=== PATIENT | male | born 1955 | race Caucasian/White ===

== ENCOUNTER 2024-12-27 01:06 | Day surgery (SDC) | payer OTHER, SELFPAY ==
[2024-12-19 12:23] VITALS: BMI 33.9
--- OUTSIDE RECORDS SUMMARY | 2024-12-27 01:09 | XMS_ITS | Continuity of Care Document ---
Author Organization [facility] Address [address] [place] [address] Phone Care Team Providers Care Cleaners Name Role Phone Bonny Chatman MD Unavailable Unavailable Allergies, Adverse Reactions, Alerts Substance Reaction Status Criticality No Known Allergies Active No Inform ation Medications Medication Instructions Dosage Effective Dates (start - stop) Status Comments LISINOPRIL-HCTZ 20-12.5 MG TAB TAKE 1 TABLET BY MOUTH EVERY DAY - Active amlodipine 5 mg tablet TAKE 1.5 TABLETS BY MOUTH EVERY DAY - Active ATORVASTATIN 20 MG TABLET TAKE 1 TABLET BY MOUTH EVERY DAY - Active PANTOPRAZOLE SOD DR 40 MG TAB TAKE 1 TABLET BY MOUTH EVERY DAY - Active Viagra 50 mg tablet take 1 tablet by oral route every day as needed approximately 1 hour before sexual activity 50 MG - Active Needs to use [facility] and it should go to Aspirin Low Dose 81 mg tablet,delayed release take 1 tablet by oral route every day 81 MG - Active LISINOPRIL-HCTZ 20-12.5 MG TAB TAKE 1 TABLET BY MOUTH EVERY DAY - No Longer Active Procedures Procedure Date CBC, INC PLATELETS AND DIFFERENTIAL COMPREHEN METABOLIC PANEL CMP LIPID PANEL PSA, TOTAL Pt inelig neg scrn depres FALL RISK ASSESSMENT DOC'D MED LIST DOCD IN RCRD PREVENTATIVE-EST: 65 & OVER BODY MASS INDEX DOCD SYST BP GE 130 - 139MM HG DIAST BP < 80 MM HG ROUTINE VENIPUNCTURE IL BASIC METABOLIC PANEL(BMP) Pt inelig neg scrn depres IMMUN ADMIN (INC PERCUTANEOUS) SINGLE, F IRST INJ RIV3 VACCINE NO PRESERV IM OFFICE [id number] BODY MASS INDEX DOCD SYST BP LT 130 MM HG DIAST BP 80-89 MM HG ROUTINE VENIPUNCTURE IL CBC, INC PLATELETS AND DIFFERENTIAL COMPREHEN METABOLIC PANEL CMP LIPID PANEL PSA, TOTAL FALL RISK ASSESSMENT DOC'D PRES/ABSN URINE INCON ASSESS Pt inelig neg scrn depres IMMUN ADMIN (INC PERCUTANEOUS) SINGLE, F IRST INJ TDAP INTRAMUSCULAR USE PREVENTATIVE-EST: 65 & OVER BODY MASS INDEX DOCD SYST BP GE 130 - 139MM HG DIAST BP < 80 MM HG ROUTINE VENIPUNCTURE IL BASIC METABOLIC PANEL(BMP) Pt inelig neg scrn depres IMMUN ADMIN (INC PERCUTANEOUS) SINGLE, F IRST INJ Flu Vac, quad (RIV4), Preservative And A ntibiotic Free IM OFFICE [id number] BODY MASS INDEX DOCD SYST BP GE 130 - 139MM HG DIAST BP < 80 MM HG ROUTINE VENIPUNCTURE IL OFFICE [id number] BODY MASS INDEX DOCD SYST BP LT 130 MM HG DIAST BP < 80 MM HG CBC, INC PLATELETS AND DIFFERENTIAL COMPREHEN METABOLIC PANEL CMP LIPID PANEL PSA, TOTAL Pt inelig neg scrn depres FALL RISK ASSESSMENT DOC'D PRES/ABSN URINE INCON ASSESS PREVENTATIVE-EST: 65 & OVER BODY MASS INDEX DOCD SYST BP >= 140 MM HG6 IT DIAST BP < 80 MM HG IMMUN ADMIN (INC PERCUTANEOUS) SINGLE, F IRST INJ Pneumococcal Conjugate Vaccine (PCV20) F ROUTINE VENIPUNCTURE [place] Pt inelig neg scrn depres OFFICE [id number] BODY MASS INDEX DOCD SYST BP GE 130 - 139MM HG DIAST BP < 80 MM HG BASIC METABOLIC PANEL(BMP) ROUTINE VENIPUNCTURE OFFICE [id number] BODY MASS INDEX DOCD SYST BP GE 130 - 139MM HG DIAST BP < 80 MM HG Pt inelig neg scrn depres IMMUN ADMIN (INC PERCUTANEOUS) SINGLE, F IRST INJ PNEUMOVAX IMMUNIZATION FALL RISK ASSESSMENT DOC'D PRES/ABSN URINE INCON ASSESS PREVENTATIVE-EST: 65 & OVER BODY MASS INDEX DOCD SYST BP >= 140 MM HG6 IT DIAST BP < 80 MM HG CBC, INC PLATELETS AND DIFFERENTIAL COMPREHEN METABOLIC PANEL CMP 2 LIPID PANEL PSA, TOTAL ROUTINE VENIPUNCTURE Pt inelig neg scrn depres PREVENTATIVE-EST: 40-64 BODY MASS INDEX DOCD SYST BP >= 140 MM HG6 IT DIAST BP < 80 MM HG CBC, INC PLATELETS AND DIFFERENTIAL COMPREHEN METABOLIC PANEL CMP 1 LIPID PANEL PSA, TOTAL ROUTINE VENIPUNCTURE Pt inelig neg scrn depres DESTRUCT BENIGN LESIONS OTHE R THAN SKIN TAGS OR CUTANEOUS VASCULAR LESIONS UP TO PREVENTATIVE-EST: 40-64 BODY MASS INDEX DOCD SYST BP LT 130 MM HG DIAST BP < 80 MM HG IMMUN ADMIN (INC PERCUTANEOUS) SINGLE, F IRST INJ Zoster Vaccine (HZV) (SHINGRIX), Intramu scular Advance Directives Directive Yes / No Effective Date File Name No Information Encounters Encounter Description Practice Location Reason(s) For Visit Diagnoses Date Provider Providers Copied on Encounter [facility], [address], [place], [place], [address] , [place] tel:[phone] [facility] No Information 5 Compa Draper. [address], [place], [address] , [place]. tel:[phone] [facility], [address], [place], [place], [address] , [place] tel:[phone] [facility] No Information 5 Compa Draper. [address], [place], [address] , [place]. tel:[phone] [facility], [address], [place], [place], [address] , [place] tel:[phone] [facility] No Information 5 Anna Butler. [address] [facility], [address] [address], [place], [place], [address] , [place]. tel: [phone] Referring Provider: Bonny Rios, [address] [place], [address] . tel:[phone] PREVENTATIVE -EST: 65 & OVER , [address], [place], [place], [address] , [place] tel: [phone] [facility] preventive exam (chief complaint)C hronic Conditions (chief complaint) Pain, joint, shoulder, leftEssential (primary) hypertensionRoutin e medical examHyperlipidemia , unspecified hyperlipidemia typeGastro-esophag eal reflux disease without esophagitis 5 Compa Draper. [address], [place], [address] , [place]. tel: [phone] Referring Provider: Bonny Rios, [address] [place], [address] . tel:[phone] [facility], [address], [place], [place], [address] , [place] tel: [phone] [facility] No Information 5 Compa Draper. [address], [place], [address] , [place]. tel: [phone] [facility] [place], [address], [place], [place], [address] , [place] tel: [phone] [facility] No Information 5 Compa Draper. [address], [address] , [place]. tel: [phone] [facility], [address], [place], [place], [address] , [place] tel: [phone] [facility] No Information 4 Compa Draper. [address], [place], [address] , [place]. tel: [phone] [facility], [address], [place], [place], [address] , [place] tel: [phone] [facility] No Information 4 Anna Rodriguezn. [address], [address] , [place]. tel: [phone] Referring Provider: Bonny Rios, [address] [place], [address] . tel:[phone] OFFICE [facility] , [address], [place], [place], [address] , [place] tel: [phone] [facility] Chronic Conditions (chief complaint) Body mass index [BMI] 35.0-35.9, adultEssential (primary) hypertensionHyperl ipidemia, unspecified hyperlipidemia typeGastro-esophag eal reflux disease without esophagitisRoutine medical exam Sep- 4 Compa Draper. [address], [place], [address] , . tel: [phone] Referring Provider: Bonny Rios, [address] [place], [address] . tel:[phone] [employer] [facility], [address], [place], [place], [address] , [place] tel: [phone] [facility] No Information Mar- 4 English Elizabeth. [address], [place], [address] , [place]. tel: [phone] [facility], [address], [place], [place], [address] , [place] tel: [phone] [facility] No Information 4 Anna Rodriguezn. [address] [facility], [address], [address] , [place]. tel: [phone] Referring Provider: Kat Watts, [address] [place], [address] . tel:[phone] PREVENTATIVE -EST: 65 & OVER , [address], [place], [place], [address] , [place] tel: [phone] [facility] Chronic Conditions (chief complaint)p reventive exam (chief complaint)c hronic conditions (chief complaint) Hyperlipidemia, unspecified hyperlipidemia typeObstructive sleep apneaEssential (primary) hypertensionGastro -esophageal reflux disease without esophagitisRoutine medical examBody mass index [BMI] 35.0-35.9, adultProstate cancer screening 4 Mac Stephens. [address] [place], [place], [address] , [place]. tel: [phone] Referring Provider: Bonny Rios, [address] [place], [address] . tel:[phone] [facility], [address], [place], [place], [address] , tel: [phone] [facility] No Information 3 Compa Draper. [address], [place], [address] , [place]. tel: [phone] [facility], [address], [place], [place], [address] , tel: [phone] [facility] No Information 3 Anna Rodriguezn. [address], [address] , . tel: [phone] Referring Provider: Bonny Rios, [address] [place], [address] . tel:[phone] OFFICE MRGDP-ARY-EZ [facility] , [address], [place], [place], [address] , tel: [phone] [facility] chronic conditions (chief complaint) Body mass index [BMI] 34.0-34.9, adultObstructive sleep apneaEssential (primary) hypertensionHyperl ipidemia, unspecified hyperlipidemia type 3 Compa Draper. [address], [place], [address] , [place]. tel: [phone] Referring Provider: Bonny Rios, [address] [place], [address] . tel:[phone] OFFICE [id number]-MFQ-JB PANDED [facility] [place], [address], [place], [place], [address] , tel: [phone] [facility] CPAP compliance (chief complaint) Essential (primary) hypertensionObstru ctive sleep apneaTrigger middle finger of right hand 3 Compa Draper. [address], [place], [address] , [place]. tel: [phone] Referring Provider: Bonny Rios, [address] [place], [address] . tel:[phone] [facility], [address], [place], [place], [address] , tel: [phone] [facility] Snoring Sep- 3 Compa Draper. [address], [address] , [place]. tel: [phone] [facility], [address], [place], [place], [address] , tel: [phone] [facility] No Information 3 Anna Butler. [address], [address] , . tel: [phone] Referring Provider: Kat Watts, [address] [place], [address] . tel:[phone] PREVENTATIVE -EST: 65 & OVER [facility] [place], [address], [place], [place], [address] , tel: [phone] [facility] preventive exam (chief complaint) Essential (primary) hypertensionGastro -esophageal reflux disease without esophagitisHyperli pidemia, unspecified hyperlipidemia typeRoutine medical examSnoringMuscle cramping 3 Mac Stephens. [address] [place], [place], [address] , . tel: [phone] Referring Provider: Bonny Rios, [address] [place], [address] . tel:[phone] [facility], [address], [place], [place], [address] , tel: [phone] [facility] No Information 3 Compa Draper. [address], [place], [address] , . tel: [phone] [employer] [facility], [address], [place], [place], [address] , [place] tel: [phone] [facility] No Information 2 oCmpa Draper. [address], [place], [address] , [place]. tel: [phone] OFFICE YVMAD-OKZ-PK TAILED [facility], [address], [place], [place], [address] , tel: [phone] [place] Chro[facility] conditions (chief complaint)C hronic Conditions (chief complaint) Body mass index [BMI] 33.0-33.9, adultEssential (primary) hypertensionGastro -esophageal reflux disease without esophagitisHyperli pidemia, unspecified hyperlipidemia type 2 Compa Draper. [address], [place], [address] , . tel: [phone] Referring Provider: Bonny Rios, [address] [place], [address] . tel:[phone] [facility], [address], [place], [place], [address] , tel: [phone] [facility] No Information 2 Compa Draper. [address], [place], [address] , [place]. tel: [phone] OFFICE SMLDZ-SBP-DG [facility], [address], [place], [place], [address] , [place] tel: [phone] Christine F/u HTN (chief complaint) Essential (primary) hypertensionBody mass index [BMI] 33.0-33.9, adult Aug- 2 Mac Stephens. [address] [place], [place], [address] , [place]. [phone] Referring Provider: Glenn Quintanilla, [address] [place], [address] . tel:[phone] PREVENTATIVE -EST: 65 & OVER [facility], [address], [place], [place], [address] , tel: [phone] [place] preventive exam (chief complaint) Body mass index [BMI] 33.0-33.9, adultEssential (primary) hypertensionGastro -esophageal reflux disease without esophagitisRoutine medical exam 2 Compa Draper. [address], [place], [address] , . [phone] Referring Provider: Bonny Rios, [address] [place], [address] . tel:[phone] [facility], [address], [place], [place], [address] , tel: [phone] [place] Essential hypertensionHyperl ipidemia, unspecified hyperlipidemia typeScreening for prostate cancerBlood tests for routine general physical examination 2 Compa Draper. [address], [place], [address] , . [phone] Referring Provider: Bonny Rios, [address] [place], [address] . tel:[phone] [facility], [address], [place], [place], [address] , tel: [phone] [place] No Information 1 Compa Draper. [address], [place], [address] , . tel:[phone] PREVENTATIVE -EST: 40-64 [facility], [address], [place], [place], [address] , [place] tel: [phone] Christine Physical (chief complaint)p reventive exam (chief complaint) Body mass index (BMI) 31.0-31.9, adultEssential (primary) hypertensionGastro -esophageal reflux disease without esophagitisEncount er for general adult medical examination without abnormal findingsLeft hip pain 1 Compa Draper. [address], [address] , [place]. tel: [phone] Referring Provider: Bonny Rios, [address] [place], [address] . tel:[phone] [employer] [facility], [address], [place], [place], [address] , [place] tel: [phone] [place] Essential hypertensionHyperl ipidemia, unspecified hyperlipidemia typeScreening for prostate cancerEncounter for blood test for routine general physical examination 1 Compa Draper. [address], [place], [address] , [place]. tel: [phone] Referring Provider: Bonny Rios, [address] [place], [address] . tel:[phone] PREVENTATIVE -EST: 40-64 [facility], [address], [place], [place], [address] , tel: [phone] [facility] preventive exam (chief complaint)1 2 month (chief complaint)C hronic Conditions (chief complaint) Encounter for general adult medical examination without abnormal findingsBody mass index (BMI) 32.0-32.9, adultEssential (primary) hypertensionGastro -esophageal reflux disease without esophagitisViral wart on fingerRosacea 0 Bryan Carter. [address] [facility], [address], [place], [place], [address] , [place]. tel: [phone] Referring Provider: Raul Adams, [address] [facility] [address], [place], [address] . tel:[phone] [facility], [address], [place], [place], [address] , [place] tel: [phone] [facility] Hyperlipidemia, unspecifiedEssenti al (primary) hypertensionPain in both lower extremitiesMale erectile dysfunction, unspecified 0 9 Bryan Carter. [address], [address], [place], [place], [address] , [place]. tel: [phone] Referring Provider: Raul Adams, [address], [place], [address] . tel:[phone] [facility], [address], [place], [place], [address] , tel: [phone] [facility] No Information 8 Dale Burks. [address], [address], [place], [place], [address] . tel: [phone] [facility], [address], [place], [place], [address] , tel: [phone] [facility] Hyperlipidemia, unspecifiedEssenti al (primary) hypertensionEncoun ter for general adult medical examination with abnormal findingsMale erectile dysfunction, unspecified 8 Bryan Carter. [address], [address], [place], [place], [address] , [place]. tel: [phone] Referring Provider: Raul Adams, [address], [place], [address] . tel:[phone] [facility], [address], [place], [place], [address] , tel: [phone] [facility] Family history of prostate cancerEssential hypertensionGastro esophageal reflux disease without esophagitisEncount er for general adult medical examination without abnormal findings 7 Bryan Carter. [address], [address], [place], [place], [address] , [place]. tel: [phone] Referring Provider: Raul Adams, [address], [place], [address] . tel:[phone] [facility], [address], [place], [place], [address] , tel: [phone] [facility] No Information 6 Bryan Carter. [address], [address], [place], [place], [address] , [place]. tel: [phone] [facility], [address], [place], [place], [address] , [place] tel: [phone] [facility] GERD without esophagitis Jun-0 7-201 5 Bryan Raul. [address], [address], [place], [place], [address] , [place]. tel: [phone] [facility], [address], [place], [place], [address] , [place] tel: [phone] [facility] Chest pain in adultRight upper quadrant painGERD without esophagitisEssenti al hypertension Jun-0 4-201 5 Bryan Raul. [address] [facility] [address], [address], [place], [place], [address] , [place]. tel: [phone] Referring Provider: Jose Luis Hannah, [address] [facility] [address], [place], [address] . tel:[phone] [facility], [address], [place], [place], [address] , [place] tel: [phone] [facility] Liver lesionABDMNAL PAIN GENERALIZED May-2 6 4 Trame Jose Luis. [address], [address], [place], [place], [address] . tel: [phone] [facility], [address], [place], [place], [address] , [place] tel: [phone] [facility] Liver lesion May-2 4 Trame Jose Luis. [address], [address], [place], [place], [address] . tel: [phone] Referring Provider: Jose Luis Hannah, [address] [facility] [address], [place], [address] . tel:[phone] [facility], [address], [place], [place], [address] , [place] tel: [phone] [facility] Influenza VaccineEssential hypertension Sep-2 9 4 Tramamelia Amaya. [address] [facility] [address], [address], [place], [place], [address] . tel: [phone] Referring Provider: Jose Luis Hannah, [address] [facility] [address], [place], [address] . tel:[phone] [facility], [address], [place], [place], [address] , tel: [phone] [facility] ROUTINE MEDICAL EXAMBENIGN HYPERTENSIONHistor y of colon polypsFamily history of prostate cancerHistory of melanomaRoutine Medical ExamNEED FOR PROPHYLACTIC VACCINATION WITH COMBINED DIPHTHERIA-TETANUS -PERTUSSIS (DTP) (DTAP) VACCINE 4 Blakesleeamelia Amaya. [address] [facility], [address], [place], [place], [address] . tel: [phone] Referring Provider: Jose Luis Hannah, [address] [facility] [address], [place], [address] . tel:[phone] [facility] [address], [place], [place], [address] , [place] tel: [phone] [facility] No Information 3 Blakesleeamelia Amaya. [address] [facility], [address], [place], [place], [address] . tel: [phone] [facility] [address], [place], [place], [address] , [place] tel: [phone] [facility] JOINT PAIN-SHLDERROUTINE MEDICAL EXAM 1 Blakesleeamelia Amaya. [address] [facility], [address], [place], [place], [address] . tel: [phone] [facility] [address], [place], [place], [address] , [place] tel: [phone] [facility] HYPERLIPIDEMIA NEC/NOSBENIGN HYPERTENSIONPEYRON IE'S DISEASE Dec- 3-200 9 Brielle Amaya. [address] [facility], [address], [place], [place], [address] . tel: [phone] [facility], [address], [place], [place], [address] , tel: [phone] [facility] POLYURIAFAMILY HX-GI MALIGNANCY 8 Trame Keeseville. [address], [address], [place], [place], [address] . tel: [phone] [facility], [address], [place], [place], [address] , tel: [phone] [facility] SCRN MALIG NEOP-PROSTATEURINA RY FREQUENCY 7 Trame Jose Luis. [address] [facility] [address], [address], [place], [place], [address] . tel: [phone] [facility], [address], [place], [place], [address] , tel: [phone] [facility] ABDMNAL PAIN GENERALIZED 4 Trame Jose Luis. [address] [facility], [address], [place], [place], [address] . tel: [phone] [facility], [address], [place], [place], [address] , tel: [phone] [facility] VACCINATION FOR TD-DT 4 Trame Jose Luis. [address], [address], [place], [place], [address] . tel: [phone] Family History Family Member Type Diagnosis Age At Onset Mother Problem (finding) stroke Father Problem (finding) stroke Father Problem (finding) osteoarthritis Father Problem (finding) pulmonary emphysema Sister Problem (finding) Parkinson's disease Problem (finding) Family history of hyper tension Mother Problem (finding) Cancer - bowel Immunizations Vaccine Date Status Comments Flublok, Trivalent, preservative free, 18+ yrs, 0.5mL dosage administered Source: New Immuniza tion Record COVID-19, mRNA, LNP-S, PF, 5 0 mcg/0.5 mL administered Source: Other Provid er Moderna Spikevax COVID Vacci ne, mRNALNP, 50 mcg/0.5 mL dose, 12 yrs and older administered Note: [facility] ; Source: Source Unspecified Tdap administered Source: New Imm unization Record RSV, recombinant, protein subunit RSVpreF, adjuvant reconstituted, 0.5 mL, PF administered Note: [facility] ; So urce: Other Provider Flublok, quadrivalent, preservative free, 0.5mL dosage administered Source: New Immunization Record Pneumococcal conjugate PCV20 administered Source: New Immunization Record influenza, high-dose, quadrivalent administered Source: Other Provid er Pfizer (Diluent Reconstitute d) COVID19 Vaccine, 0.3mL per dose, 2 doses, administered 21 days apart administered Note: [facility] ; Source: Source Unspecified Pneumococcal polysaccharide PPV23 administered Source: New Immuniza tion Record Fluzone Quad, preservative free, split virus, 0.5mL dosage administered Note: [facility] ; Source: Public Agency Pfizer (Diluent Reconstitute d) COVID19 Vaccine, 0.3mL per dose, 2 doses, administered 21 days apart administered Note: [facility] ; So urce: Other Registry Pfizer (Diluent Reconstitute d) COVID19 Vaccine, 0.3mL per dose, 2 doses, administered 21 days apart administered Note: [facility] ; So urce: Other Registry Pfizer (Diluent Reconstitute d) COVID19 Vaccine, 0.3mL per dose, 2 doses, administered 21 days apart administered Note: [facility] ; So urce: Other Registry Fluzone Quad, preservative free, split virus, 0.5mL dosage administered Note: [place] date not accurate ; Source: Source Unspecified SHINGRIX (Zoster vaccine recombinant, adjuvanted) administered Source: Source Unspecified SHINGRIX (Zoster vaccine recombinant, adjuvanted) administered Source: New Imm unization Record Fluzone Quad, split virus, 0.5mL dosage administered [facility] ; Minda rce: Other Provider Zoster administered Source: Source Unspecified influenza, injectable, quadrivalent, (3 years or older) administered [facility] ; So urce: Other Registry influenza, injectable, quadrivalent, (3 years or older) administered Note: [facility] ; So urce: Other Provider Influenza, injectable, quadrivalent, preservative free, 3 yrs or older administered Source: New Immuniz ation Record Tdap (Boostrix r) administered Source: Ne w Immunization Record flu (split) (3 yrs or older) administered Source: Other Provider [id number] - TD administered Source: Source Unspecified Payers Payer name Insurance type Covered libertarian ID Authoriza tion(s) AETNA NAP CI [id number] AETNA NAP CI [id number] AET[employer] NAP CI [id number] AETNA NAP CI [id number] AET[employer] NAP CI [id number] AETNA NAP CI [id number] AETNA NAP CI [id number] [facility] CI [id number] Social History Type Description Quantity Date Captured Comments Sex Male Smoking Status No Information Chief Complaint And Reason For Visit No Information Reason For Referral Reason For Referral No Information Plan Of Treatment Date Type Action Status Goal Dietary manageme nt education, guidance, and counseling completed Goal Dietary manageme nt education, guidance, and counseling completed Goal Dietary manageme nt education, guidance, and counseling completed Goal Dietary manageme nt education, guidance, and counseling completed Goal Dietary manageme nt education, guidance, and counseling completed Goal Dietary manageme nt education, guidance, and counseling completed Goal Dietary manageme nt education, guidance, and counseling completed Goal Dietary manageme nt education, guidance, and counseling completed Referral Ordered: Feliberto Cormier -Gastroenterology (related to Screen for colon cancer) ordered Referral Referred To: Feliberto Cormier Ordered: Referrals: Gastroenterology. Feliberto Cormier. Evaluation/diagnostic/treatment - Level 3 ordered Referral Ordered: CPAP MACHINE (related to Snoring) ordered Referral Referred To: CPAP MACHINE Ordered: Referrals: CPAP MACHINE. Evaluation/diagnostic/treatment - Level 3 ordered Referral Ordered: SLEEP STUDY, UNATTENDED ordered Appointment Dustin Whiting BOOKED History Of Present Illness Encounter Date Complaint History Of Prese nt Illness Chronic Conditions *See Chronic Conditions HPI preventive exam Men's preventive visit. Patient Health Questionnaire (PHQ-2) is negative. Patient is on a healthy diet. Marital status: . Concern(s)/Requests Detail: Routine PE done todayFasting labs drawn today with results pending.Due for colonoscopy due to family history of colon cancer. Relevant history is positive for alcohol use. Relevant history is negative for tobacco use. Chronic Conditions *See Chronic Conditions HPI chronic conditions *See Chronic Conditions HPI Chronic Conditions *See Chronic Conditions HPI preventive exam Men's preventive visit. Patient Health Questionnaire (PHQ-2) is negative. Patient is on a healthy diet. Marital status: . Relevant history is positive for alcohol use. Relevant history is negative for tobacco use. chronic conditions f/u HTN- BP s table on current medication without SE's.No CP or SOB or dizziness.Labs drawn today for close monitoring of renal function.Limiting salt.f/u hyperlipidemia- stable on statin without SE's. tries to limit fatty foods. Plans to start doing more regular exercise.f/u SEMAJ- uses CPAP nightly with good sleep quality. CPAP compliance Pt. here for f/u obstructive sleep apnea.States he has been using his CPAP machine nightly for SEMAJ and has been compliant with the CPAP nightly. States he is tolerating the mask without problems.States his reports that he no longer has apnea episodes and no longer snoring.Feels energy level is stable.Has HTn with BP stable on current meds without SE's.Has trigger finger of middle finger of right hand with locking of the finger at times when trying to extend the finger. preventive exam Men's preventive visit. Patient Health Questionnaire (PHQ-2) is negative. Patient is on a healthy diet. Marital status: . Concern(s)/Requests Detail: Colonoscopy - UTD 2019 - repeat in 2024PSA - DUE NOWCOVID - had COVID recentlyFlu - UTDShingrix - UTDPneumonia - DUE FOR PREVNAR 20HTNTakes amlodipine, lisinopril, HCTZHome BP readings: noneGERDControlled on medications dailyHLDTakes statin with no side effectsPatient reports snoring nightly and having muscle cramps at night. He reports the cramping is not consistent and improves with getting up to walk. Relevant history is positive for alcohol use. Relevant history is negative for tobacco use. Chroinc conditions Chronic Conditions *See Chronic Conditions HPI F/u HTN 66 year old male who presents for followup of HTN. He was started on amlodipine one month ago. He also take losartan/HCTZHome BP readings: 130/70sHe has no side effects on this medications preventive exam Men's preventive visit. Patient Health Questionnaire (PHQ-2) is negative. Marital status: . Concern(s)/Requests Detail: Routine PE done today.Reviewed fasting labs with pt. PSA level pending.Trying to get back to low fat diet and exercise. Has HTN with BP higher on current medication which he attributes to stress and weight gain.Has GERD stable on medication without SE's. Relevant history is positive for alcohol use. Relevant history is negative for tobacco use. Physical preventive exam Men's preventive visit. Patient Health Questionnaire (PHQ-2) is negative. Marital status: . Concern(s)/Requests Detail: Pt. here for routine PE.Reviewed fasting labs with pt. done this week- normal.Pt. has only received one shingles vaccine last year. Has not received the 2nd vaccine yet. Has problems with pain over left hip when laying in bed and improves when getting up and walking around. Pain can occur when laying on right or left side. No pain during the day. Essential (primary) hypertension-uncontrolled with BP higher today. States he has not been checking at home. No SE's on medication.Gastro-esophageal reflux disease without esophagitis-Stablecontrolled with the pantoprazole without SE's. Relevant history is positive for alcohol use. Relevant history is negative for tobacco use. Chronic Conditions *See Chronic Conditions HPI 12 month Has wart on Left index finger which appeared about 2 month ago Increasing in size slowly Notice rosacea on forehead about a month ago . Scaly and somewhat painful Was given some medicated shampoo Been using moisturizer preventive exam Men's preventive visit. Marital status: . Relevant history is positive for alcohol use. Functional Status Date Functional Assessmen t No Information Instructions Date Instruction Additional Infor gato start exercises on t he handoutfollow up if no improvement or any worsening Related to Pain, joint, shoulder, left Refer to Dr. Genia Devlin for colonoscopy due to family history of colonosocpyTry to do some regular exercisefollow up in 6 months Related to Routine medical exam Continue atorvastatin Related to Hyperlipidemia, unspecified hyperlipidemia type continue the pantoprazole. Relat ed to Gastro-esophageal reflux disease without esophagitis Increase amlodipine to 7.5mg dailycontinue lisinopril/hctzCont. regular exercise and cont. to limit salt intake. Monitor home BP's and call if BP consistently running above 140/90.Please send in your blood pressure readings in 3 to 4 weeksfollow up in 6 months- fasting labs prior Related to Essential (primary) hypertension Exercise Flu vaccine given to daytry to do some regular exercise Related to Routine medical exam continue the pantoprazole. Relat ed to Gastro-esophageal reflux disease without esophagitis Continue current med sBMP labs drawn today for close monitoring of electrolytes and kidney functionCont. regular exercise and cont. to limit salt intake. Monitor home BP's and call if BP consistently running above 140/90.follow up in 6 months- fasting labs prior Related to Essential (primary) hypertension Continue atorvastatin Related to Hyperlipidemia, unspecified hyperlipidemia type Immunizations Dietary management e ducation, guidance, and counseling Related to Body mass index (BMI) 35.0-35.9, adult Followup in 6 months We recommend getting the updated COVID booster if you have not yet. You should wait at least 2 months after your last COVID vaccine to get this updated vaccine Related to Routine medical exam continue pantoprazole Related to Gastro-esophageal reflux disease without esophagitis Continue atorvastatin Related to Hyperlipidemia, unspecified hyperlipidemia type Continue current med sCont. regular exercise and cont. to limit salt intake. Monitor home BP's and call if BP consistently running above 140/90. Related to Essential (primary) hypertension Continue wearing you r CPAP nightlycontinue to work on regular exercise and low fat diet Related to Obstructive sleep apnea Urinary Incontinence Dietary management e ducation, guidance, and counseling Related to Body mass index (BMI) 35.0-35.9, adult Fall Risk Prevention Continue atorvastati nCheck labs in 6 months prior to your next appointment Related to Hyperlipidemia, unspecified hyperlipidemia type Continue current med sCont. regular exercise and cont. to limit salt intake. Monitor home BP's and call if BP consistently running above 140/90.Flu vaccine given todayFollow up in 6 months for physical and fasting labs Related to Essential (primary) hypertension Continue wearing you r CPAP nightlycontinue to work on regular exercise and low fat diet Related to Obstructive sleep apnea Exercise Dietary management e ducation, guidance, and counseling Related to Body mass index (BMI) 34.0-34.9, adult Call back if you wou ld like to be referred to a hand specialist for a steroid injection Related to Trigger middle finger of right hand Continue wearing you r CPAP nightlycontinue to work on regular exercise and low fat diet Related to Obstructive sleep apnea Continue current med sCont. regular exercise and cont. to limit salt intake. Monitor home BP's and call if BP consistently running above 140/90. Related to Essential (primary) hypertension continue the pantoprazole. Relat ed to Gastro-esophageal reflux disease without esophagitis Continue atorvastatin Related to Hyperlipidemia, unspecified hyperlipidemia type Followup in 6 months You were updated on Prevnar vaccine todayYou are up to date on other vaccines and screenings Related to Routine medical exam Continue current med sCont. regular exercise and cont. to limit salt intake. Monitor home BP's and call if BP consistently running above 140/90. Related to Essential (primary) hypertension We will check labs t odayDrink more water throughout the dayWe will check sleep study Related to Muscle cramping Fall Risk Prevention Urinary Incontinence We will order a sleep study toda y Related to Snoring Continue atorvastatin Related to Hyperlipidemia, unspecified hyperlipidemia type continue the pantoprazole. Relat ed to Gastro-esophageal reflux disease without esophagitis Continue current med sCont. regular exercise and cont. to limit salt intake. Monitor home BP's and call if BP consistently running above 140/90. Related to Essential (primary) hypertension Dietary management e ducation, guidance, and counseling Related to Body mass index (BMI) 33.0-33.9, adult Exercise Cont. regular exerci se and cont. to limit salt intake. Monitor home BP's and call if BP consistently running above 140/90. Related to Essential (primary) hypertension Dietary management e ducation, guidance, and counseling Related to Body mass index (BMI) 33.0-33.9, adult Pneumovax 23 given t odayTry to get back to regular exerciseWe will add a PSA level to labs done yesterdayfollow up in 1 month Related to Routine medical exam START AMLODIPINE 5MG DAILYCONTINUE LISINOPRIL/HCTZ Cont. regular exercise and cont. to limit salt intake. Monitor home BP's and call if BP consistently running above 140/90.follow up in 1 month Related to Essential (primary) hypertension continue the pantoprazole. Relat ed to Gastro-esophageal reflux disease without esophagitis Immunizations Dietary management e ducation, guidance, and counseling Related to Body mass index (BMI) 33.0-33.9, adult Start exercises as i nstructed on the handoutMassage with topical anti-inflammatory such as Voltaren gel Related to Left hip pain Continue regular exe rciseFollow up in 1 yearGet the Shingrix vaccine at the pharmacyGet the COVID vaccine when it is available for you Related to Encounter for general adult medical examination without abnormal findings continue the pantoprazole. Relat ed to Gastro-esophageal reflux disease without esophagitis Continue current med ication Cont. regular exercise and cont. to limit salt intake. Monitor home BP's and call if BP consistently running above 140/90.Call or email BP readings in 2 weeks Related to Essential (primary) hypertension Immunizations Dietary management e ducation, guidance, and counseling Related to Body mass index (BMI) 31.0-31.9, adult with informed consen t, I applied cryotherapy. Site should heal within 2 weeks. Could be repeated in 1 month if wart is not completely gone. Related to Viral wart on finger continue the pantoprazole. Relat ed to Gastro-esophageal reflux disease without esophagitis well controlled. Related to Esse ntial (primary) hypertension medronidazole topica l gel twice per day Related to Rosacea Dietary management e ducation, guidance, and counseling Related to Body mass index (BMI) 32.0-32.9, adult Disease process Assessments Type Assessment Date No Information Patient Care Teams Name Effective Dates (start - stop) Status Members No Information
[2024-12-27 12:37] VITALS: BP 133/68; PULSE 61; RESP 18; TEMP 36.2; O2SAT 100
[2024-12-27] MEDS: LACTATED RINGERS 1,000 ML 150 ML IV CONT (12:49)
--- NOTE | 2024-12-27 12:51 | P.PNAN_ITS ---
Anes - Initial Pre Proc Eval Procedure: Operation Date: 12/27/24 13:30 Proposed Procedures p Screening Colonoscopy - Bharathi Cormier MD Date/Time: 12/27/24 12:51 Surgeon: Bharathi Cormier MD Pre Op Diagnosis: Encounter for screening for malignant neoplasm of Patient Data Age: 69 Gender: M Height: 1.83 m Weight: 114.6 kg Last Vital Signs Temp 36.2 C L 12/27/24 12:37 Pulse 61 12/27/24 12:37 Resp 18 12/27/24 12:37 BP 133/68 12/27/24 12:37 Pulse Ox 100 12/27/24 12:37 O2 Del Method Room Air 12/27/24 12:37 Allergies Allergy/AdvReac Type Severity Reaction Status Date / Time No Known Allergies Allergy Verified 12/27/24 12:36 Home Medications ?Medication ?Instructions ?Recorded ?Confirmed ?Type amlodipine 5 mg tablet 5 mg PO DAILY 12/19/24 12/27/24 History aspirin 81 mg tablet,delayed 81 mg PO DAILY 12/19/24 12/27/24 History release (Adult Low Dose Aspirin) atorvastatin 20 mg tablet 20 mg PO DAILY 12/19/24 12/27/24 History lisinopril 20 1 tablet PO DAILY 12/19/24 12/27/24 History mg-hydrochlorothiazide 12.5 mg tablet pantoprazole 40 mg tablet,delayed 40 mg PO DAILY 12/19/24 12/27/24 History release Patient hx anesthesia problems: none Family hx anesthesia problems: none Results Review: All pre-operative results and documents have been reviewed as part of the pre- operative evaluation. [facility] Social History Social History Alcohol intake: current Drinks per week: 5 Living arrangements: with family Spiritual care concerns: No Anes - Eval Final PreProcedure Day of Procedure 12/27/24 12:51 Patient weight: obese Heart: regular rate and rhythm Lungs: clear to auscultation Airway: Mallampati scale class II Neurological: alert and oriented Last oral intake: >/= 8 hours ASA classification: III Emergent: no Anesthetic plan: proceed Anesthesia type and monitoring: general GIVS and standard monitoring Results Review: All pre-operative results and documents have been reviewed as part of the pre- operative evaluation. Informed Consent: The patient's anesthetic plan and its attendant risks and benefits were discussed with the patient/family/POA. Questions were solicited and answers provided to the satisfaction of the patient/family/POA.
--- NOTE | 2024-12-27 13:21 | PM.IMHP ---
H&P: HPI History of Present Illness Date/Time: 12/27/24 13:21 Chief Complaint: Family history of colon cancer Narrative: This patient has family history of colorectal cancer. his mother had colon cancer when she was in her 60s. The patient had his last colonoscopy 5 years ago and had no polyps, however on previous colonoscopies he did have polyps. Review of Systems Review of Systems: All systems reviewed & are unremarkable except as noted in HPI and below PMFSH Social History Social History Alcohol intake: current Drinks per week: 5 Living arrangements: with family Spiritual care concerns: No Meds Home Medications and Allergies Home Medications ?Medication ?Instructions ?Recorded ?Confirmed ?Type amlodipine 5 mg tablet 5 mg PO DAILY 12/19/24 12/27/24 History aspirin 81 mg tablet,delayed 81 mg PO DAILY 12/19/24 12/27/24 History release (Adult Low Dose Aspirin) atorvastatin 20 mg tablet 20 mg PO DAILY 12/19/24 12/27/24 History lisinopril 20 1 tablet PO DAILY 12/19/24 12/27/24 History mg-hydrochlorothiazide 12.5 mg tablet pantoprazole 40 mg tablet,delayed 40 mg PO DAILY 12/19/24 12/27/24 History release Allergies Allergy/AdvReac Type Severity Reaction Status Date / Time No Known Allergies Allergy Verified 12/27/24 12:36 Vital Signs Vital Signs - 24 hr 12/27/24 12:37 Temperature 97.1 F L Pulse Rate 61 Respiratory Rate 18 Blood Pressure 133/68 Pulse Oximetry 100 Oxygen Delivery Room Air Exam Const: General: cooperative and healthy appearing Resp: Effort & Inspection: normal respiratory effort and able to speak in complete sentences Auscultation: clear to auscultation bilaterally Cardio: Rate: regular rate Rhythm: regular rhythm GI: Inspection: normal to inspection GI Palp: No No hepatosplenomegaly present Auscultation: normal bowel sounds Rectal Exam: deferred Skin: General skin exam: normal color Psych: Appearance: grossly normal Mental Status: mental status grossly normal Assessment and Plan Assessment and plan (1) Family history of colorectal cancer: Code(s): Z80.0 - Family history of malignant neoplasm of digestive organs Status: Acute Assessment and Plan: The patient is deemed a good candidate for the procedure. Consent signed. Will proceed.
[2024-12-27 13:54] VITALS: BP 101/68; PULSE 56; RESP 24; O2SAT 96
[2024-12-27 14:04] VITALS: BP 103/66; PULSE 57; RESP 20; O2SAT 94
[2024-12-27 14:14] VITALS: BP 121/73; PULSE 58; RESP 19; O2SAT 98
== END 2024-12-27 14:22 | disposition home or self-care (01) ==
PROVIDERS: PCP Internal Medicine; Visit Provider Internal Medicine Gastroenterology
PROC: 0DJD8ZZ Inspection of Lower Intestinal Tract, Via Natural or Artificial Opening Endoscopic (ICD-10-PCS; CPT 45378; principal; 2024-12-27 13:30)
DX: Z12.11 Encounter for screening for malignant neoplasm of colon (principal); Z80.0 Family history of malignant neoplasm of digestive organs; E66.9 Obesity, unspecified; Z68.34 Body mass index [BMI] 34.0-34.9, adult
CPT/HCPCS: 45378; J2003; J2704; J7120